=== PATIENT | male | born 2000 | race Caucasian/White ===

== ENCOUNTER 2022-05-15 09:32 | Emergency (ER) | payer MEDICAID, SELFPAY ==
--- NOTE | ~2022-05-15 | CT_ITS ---
EXAMINATION: CT FACIAL BONES WITHOUT CONTRAST CLINICAL INFORMATION: Question left. Parotitis. COMPARISON: No relevant prior imaging. TECHNIQUE: Escalator Service Mechanic images were obtained. CT imaging of the face was performed without contrast. Data was reformatted into multiplanar images at the acquisition workstation. This CT examination was performed using dose optimization techniques as appropriate, variously including the following: *Automated exposure control *Adjustment of mA and/or kV according to patient size (this includes techniques or standardized protocols for targeted exams where dose is matched to indication/reason for exam; i.e. extremities or head) *Use of iterative reconstruction technique DLP: 454 mGy-cm FINDINGS: There is asymmetric subcutaneous stranding involving the left preauricular soft tissues best depicted on axial image 148 of 248 series 3. The parotid tissue is otherwise unremarkable. There is a somewhat prominent albeit otherwise nonspecific left preauricular lymph node. No asymmetric prominence of the parotid ducts. Rubber Thread Spooler spaces are grossly symmetric. Parapharyngeal and retromaxillary fat is preserved. Visualized pharyngeal mucosal spaces are grossly unremarkable. Submandibular glands are normal. There are a a few small retention cysts within the alveolar recesses of both maxillary sinuses. Paranasal sinuses are otherwise well aerated. All of the major paranasal sinus drainage pathways are patent. The nasal septum deviates to the left. Globes and extraocular muscles are symmetric. No abnormal retrobulbar mass or inflammation. Lamina papyracea and orbital floors are intact. Orbital apices are unremarkable. Limited visualization of the intracranial anatomy reveals no abnormal finding. CT/CT facial bones wo con IMPRESSION: The diagnostic accuracy of this examination is somewhat limited due to the absence of intravenous contrast. There are asymmetric inflammatory changes involving the superficial subcutaneous soft tissues in the left preauricular region that most likely represent a manifestation of cellulitis. There is also a somewhat prominent albeit otherwise nonspecific left preauricular lymph node. Grossly no discrete drainable fluid collection. Parotid glands and submandibular glands are unremarkable and there is no abnormal mass or calcification along the expected course of the left parotid duct.
[2022-05-15 10:00] VITALS: BP 151/97; PULSE 100; RESP 16; TEMP 36.8; O2SAT 98; BMI 29.0
--- NOTE | 2022-05-15 10:38 | ED.GENADULT ---
HPI - General Adult General Chief complaint: Skin/Abscess/Foreign Body Stated complaint: Cellulitis Time Seen by Provider: 05/15/22 10:15 Source: patient Mode of arrival: ambulatory Limitations: no limitations History of Present Illness HPI narrative: 21-year-old male presents to ED for left facial mass near sideburns that is red and tender for the past 3 days with small lump. Patient denies any severe pain, fever, chills, head trauma, ear pain, dizziness, dry mouth, neck swelling, drooling, change in voice, chest pain, or shortness of breath. Patient states he has had this before any resolved with antibiotics. Related Data Previous Rx's Medication Instructions Recorded cephalexin 500 mg capsule 500 mg PO QID 7 days #28 caps 05/15/22 doxycycline hyclate 100 mg capsule 100 mg PO BID 10 days #20 caps 05/15/22 Allergies Allergy/AdvReac Type Severity Reaction Status Date / Time No Known Allergies Allergy Verified 05/15/22 09:59 Review of Systems Review of Systems: left facial red mass Yes all other systems are reviewed and are negative [facility] Social History Social History Advance Directives: No Advance Directives Information Provided: No Physical Exam ED Vital Signs: Vital Signs - 24 hr 05/15/22 10:00 Temperature 98.2 F Pulse Rate 100 Respiratory Rate 16 Blood Pressure 151/97 H Pulse Oximetry 98 Oxygen Delivery Method Room Air BMI result Body Mass Index 29.0 Const General: cooperative, healthy appearing, comfortable, no acute distress, well developed and alert Orientation/consciousness: patient oriented x3 HENMT Other: Oral exam negative for any tongue swelling, lip swelling, uvula swelling, tongue floor swelling, signs of, peritonsillar abscess, tooth infection, gum abscess, trismus, drooling, or hoarse voice. Head: Yes normal to inspection, Yes No palpable skull fracture present, Yes normocephalic, Yes atraumatic and No abrasion Head images: 1. Positive for erythema, slight tenderness, and nonfluctlant mass. Negative for facial swelling or neck swelling. Ears: hearing grossly normal bilaterally, external ears normal, TM's normal bilaterally, TM normal on the right, TM normal on the left and EAC's normal Eyes General: appearance normal, both eyes and all related structures Neck Neck: Yes normal visual inspection, Yes full ROM, Yes no lymphadenopathy, Yes no meningeal signs, Yes trachea midline, Yes supple, No anterior neck swelling and No tender Chest Chest palpation & inspection: normal inspection of the chest and normal palpation of entire chest wall Resp Effort & Inspection: normal respiratory effort and able to speak in complete sentences Auscultation: clear to auscultation bilaterally Cardio Jugular venous distension: no JVD Heart sounds: S1 normal heart sound present and S2 normal heart sound present GI Inspection: Yes normal to inspection and No abdominal wall ecchymosis Palpation (GI): Soft to palpation, not firm, nontender, no guarding and not rigid General: No CVA tenderness and Yes no CVA tenderness Back/Spine/Pelvis Back: no CVA tenderness, No CVA tenderness and No back tenderness Skin General skin exam: no rashes or lesions noted and elasticity normal Neuro General: patient oriented x3, gait normal and no meningeal signs Cranial nerves: Yes CN's II-XII intact bilaterally Extrem General: Yes normal to inspection and Yes full ROM Psych Appearance: grossly normal, well kempt and not disheveled Course Course Course Narrative: Will do a dry CT scan to check for parotitis. Due to IV shortage will order dry CT scan. Patient stable not in distress. Reevaluation(s) Reevaluation #1: CT scan of face negative for parotitis or abscess. Just shows cellulitis. Patient will be discharged antibiotics. Patient educated on warm compress 4 times a day for 15 minutes. Time: 12:50 Medical Decision Making [facility] Narrative Medical decision making narrative: Facial cellulitis Discharge Plan Discharge Clinical Impression: Cellulitis Patient Disposition: Home, Self-Care Instructions: Cellulitis (ED) Additional Instructions: CT scan negative for parotitis. CT scan just shows skin infection and also lymph node inflammation. You need antibiotics. Return to the ED for any worsening facial swelling, ear pain, neck swelling, shortness of breath, drooling, chest pain, shortness of breath, headache, worsening redness, pus discharge, or any other concerning symptoms. Please follow up with PCP. Prescriptions: New cephalexin 500 mg capsule 500 mg PO QID 7 Days Qty: 28 0RF doxycycline hyclate 100 mg capsule 100 mg PO BID 10 Days Qty: 20 0RF Interventions: ED Discharge Assessment Last Done: 05/15/22 12:59 Discharge Date/Time: 05/15/22 13:02 Print Language: Mauritanian
== END 2022-05-15 13:02 | disposition home or self-care (01) ==
PROVIDERS: Emergency Provider Student in an Organized Health Care Education/Training Program
DX: L03.211 Cellulitis of face (principal); R22.0 Localized swelling, mass and lump, head
CPT/HCPCS: 70486; 99283; 99284

== ENCOUNTER 2025-02-17 06:04 | Emergency (ER) | payer OTHER, SELFPAY ==
[2025-02-17 06:13] VITALS: BP 137/81; PULSE 84; RESP 18; TEMP 36.7; O2SAT 99; BMI 28.2
[2025-02-17 06:38] VITALS: BP 137/81; PULSE 84; RESP 18; TEMP 36.7; O2SAT 99
--- OUTSIDE RECORDS SUMMARY | 2025-02-17 06:46 | XMS_ITS | Encounter Summary ---
Author Organization [facility] Address [address] [place] [address] Phone Care Team Providers Care Senior Javascript Engineer Name Role Phone Unavailable Primary Care Provider Unavailabl e Encounter Details Date Type Department Care Team (Late st Contact Info) Description 03/10/2012 Documentation [facility] [place] Family Medicine [address] [place] [address] Family Medicine, Physician [address] [place] [address] Social History Tobacco Use Types Packs/Day Years Used Date Smoking Tobacco: Never Assessed Sex and Gender Information Value Date Recorded Sex Assigned at Not on file Legal Sex Male 5:12 PM EDT Gender Identity Not on file Sexual Orientation Not on file documented as of this encounter Plan of Treatment Not on file documented as of this encounter Visit Diagnoses Not on filedocumented in this encounter
--- OUTSIDE RECORDS SUMMARY | 2025-02-17 06:46 | XMS_ITS | Encounter Summary ---
Author Organization [facility] Address [address] [place] [id number] Phone Care Team Providers Care Gate Attendant Name Role Phone Unavailable Primary Care Provider Unavailabl e Encounter Details Date Type Department Care Team (Late st Contact Info) Description 02/29/2012 Documentation [facility] [place] Family Medicine [address] [place] [address] Family Medicine, Physician [address] [place] [address] Social History Tobacco Use Types [...]
--- OUTSIDE RECORDS SUMMARY | 2025-02-17 06:46 | XMS_ITS | Encounter Summary ---
Author Organization [facility] Address [address] [place] [id number] Phone Care Team Providers Care Marine Equipment Test Engineer Name Role Phone Unavailable Primary Care Provider Unavailabl e Encounter Details Date Type Department Care Team (Late st Contact Info) Description 05/23/2017 Conversion Encounter [facility] - [address] [address] Social History Tobacco Use Types Packs/Day Years Used Date Smoking Tobacco: Never Comments:Never smoker Sex and Gender Information Value Date Recorded Sex Assigned at Not on file Legal Sex Male 5:12 PM EDT Gender Identity Not on file Sexual Orientation Not on file documented as of this encounter Plan of Treatment Not on file documented as of this encounter Visit Diagnoses Not on filedocumented in this encounter
--- OUTSIDE RECORDS SUMMARY | 2025-02-17 06:46 | XMS_ITS | Encounter Summary ---
Author Organization [facility] Address [address] [place] [address] Phone Care Team Providers Care Administrative Supervisor Name Role Phone Unavailable Primary Care Provider Unavailabl e Encounter Details Date Type Department Care Team (Late st Contact Info) Description 12/22/2014 Documentation [facility] [place] [address] [place] [address] Family Medicine, Phys[place] [address] Social History Tobacco Use Types [...]
--- OUTSIDE RECORDS SUMMARY | 2025-02-17 06:46 | XMS_ITS | Clinical Summary ---
Author Organization [facility] Address [address] [place] [id number] Phone Care Team Providers Care Investor Relations Analyst Name Role Phone Unavailable Primary Care Provider Unavailabl e Allergies No known active allergies Medications No known medications Active Problems Problem Noted Date Diagnosed Date Coarctation of aorta 12/13/2014 Essential hypertension 02/14/2012 History of aortic coarctation repair 01/26/2010 Immunizations Immunization Administration Dates Next Due DTaP 5 11/22/2004, 2,04/18/2001,03/02,2000 H1N1 09/22/2009 Hep A, ped/adol 07/19/2015,09/08/2014 Hep B, ped/adol 07/28/2001,2000,2000 Hib (PRP-T) 01/21/2002, 1,03/04/2001,01/07 IPV 11/22/2004, 1,03/04/2001,12/30 Influenza Split 06/30/2013, 2,08/02/2011,06/13 Influenza, injectable, quadr ivalent, preservative free 07/17/2017,08/01/2016,06/22/2015,06/29 Influenza, injectable, trivalent 009,07/01/2008,08/11/2007,08/16,08/09/2005,08/02/2004,08/12/2003 MMR 11/22/2004,01/21/2002 Meningococcal Conj (Menactra) MCV4P 05/29/2013 Pneumococcal Conjugate 04/10/2002,2000,03/04/2001,01/07 Tdap 08/25/2012 Varicella 05/28/2013,10/24/2001 Family History Relation Name Status Comments Father Alive Father: Alcohol ism, Hepatitis C, Alive and well Mother Mother: Hyperli pidemia, Asthma Other Family history of *Heart Disease, Family history of Cancer, prostate, No family history of *Sudden /ND under 55, No family history of Developmental dislocation of hip, Family history of *Dental caries, Family history of Migraines, No family history of Obesity, Family history of Diabetes mellitus, Family history of ADD/ADHD, No family history of Seizure disorder, Family history of *CVA/Stroke, Family history of Hypertension, No family history of *Thrombophilia, Family history of Hyperlipidemia, No family history of Deafness Social History Tobacco Use Types Packs/Day Years Used Date Smoking Tobacco: Never Smokeless Tobacco: Never Comments:Never smoker Sex and Gender Information Value Date Recorded Sex Assigned at Not on file Legal Sex Male 5:12 PM EDT Gender Identity Not on file Sexual Orientation Not on file Last Filed Vital Signs Vital Sign Reading Time Taken Comments Blood Pressure 122/72 08/22/2017 5:13 PM EST Pulse 86 08/22/2017 5:13 PM EST Temperature 36.9 ??C (98.5 ??F) 08/22/2017 5:13 PM ES T Respiratory Rate - - Oxygen Saturation - - Inhaled Oxygen Concentration - - Weight 67.8 kg (149 lb 6.4 oz) 08/22/2017 5:13 P M EST Height 167 cm (5' 5.75 ) 08/22/2017 5:13 PM EST Body Mass Index 24.3 08/22/2017 5:13 PM EST Plan of Treatment Health Maintenance Due Date Last Done Comments HPV Vaccines (1 - Male 3-dose series) 2015 DTaP,Tdap,and Td Vaccines (7 - Td or Tdap) 08/25/2022 08/25/2012, 11/22/2004, 04/10/2002, Additional history exists Influenza Vaccines (#1) 2024 07/17/20 17, 08/01/2016, 06/22/2015, Additional history exists COVID-19 Vaccine ( - season) 2024 Hepatitis B Vaccines Completed 07/28/2001, 2000, 2000 HIB Vaccines Completed 01/21/2002, 04/06, 03/04/2001, Additional history exists Pneumococcal Vaccine Completed 04/10/2002, 04/19/2001, 03/04/2001, Additional history exists IPV Vaccines Completed 11/22/2004, 07/08, 03/04/2001, Additional history exists MMR Vaccines Completed 11/22/2004, 01/21/2002 Varicella Vaccines Completed 05/28/2013, 10/24/2001 Meningococcal Vaccine Aged Out 05/29/2013 No patricia jalen eligible based on patient's age to complete this topic Hepatitis A Vaccines Completed 07/19/2015, 09/08/20 14 Men B Vaccine Aged Out No longer elig ible based on patient's age to complete this topic Insurance [facility] NON PCC
--- OUTSIDE RECORDS SUMMARY | 2025-02-17 06:46 | XMS_ITS | Encounter Summary ---
Author Organization [facility] Address [address] [place] [phone] Phone Care Team Providers Care Procurement Officer Name Role Phone Unavailable Primary Care Provider Unavailabl e Encounter Details Date Type Department Care Team (Late st Contact Info) Description 05/29/2013 Documentation [facility] [place] Family Medicine [address] [place] [address] Family Medicine, Physician [address] [place] [address] Social History Tobacco Use Types [...]
--- OUTSIDE RECORDS SUMMARY | 2025-02-17 06:46 | XMS_ITS | Encounter Summary ---
Author Organization [facility] Address [address] [place] [address] Phone Care Team Providers Care Back Shoe Cutter Name Role Phone Unavailable Primary Care Provider Unavailabl e Encounter Details Date Type Department Care Team (Late st Contact Info) Description 01/16/2010 Documentation [facility] Family Medicine [address] [place] [address] Family Medicine, Physician [address] [place] [address] Social History Tobacco Use Types [...]
--- OUTSIDE RECORDS SUMMARY | 2025-02-17 06:46 | XMS_ITS | Encounter Summary ---
Author Organization [facility] Address [address] [place] [address] Phone Care Team Providers Care Blow Machine Tender Starch Spraying Name Role Phone Unavailable Primary Care Provider Unavailabl e Encounter Details Date Type Department Care Team (Late st Contact Info) Description 02/24/2010 Documentation [facility] Family Medicine [address] [place] [address] Family Medicine, Physician [address] [place] [address] Social History Tobacco Use Types [...]
== END 2025-02-17 07:14 | disposition left against medical advice (07) ==
PROVIDERS: Emergency Provider Emergency Medicine
DX: K08.89 Other specified disorders of teeth and supporting structures (principal)
CPT/HCPCS: 99281; 99284